=== PATIENT | male | born 1975 | race Caucasian/White ===

== ENCOUNTER 2023-03-09 07:41 | Emergency (ER) | payer BC, SELFPAY ==
[2023-03-09 07:46] VITALS: BP 189/102; PULSE 88; RESP 18; TEMP 36.3; O2SAT 100; BMI 33.6
--- NOTE | 2023-03-09 08:20 | CRLHL7_ITS ---
For Patients: As a result of the Century Cures Act, medical imaging exams and procedure reports are released immediately into your electronic medical record. You may view this report before your referring provider. If you have questions, please contact your health care provider. INDICATION: Chest pain COMPARISON: None TECHNIQUE: PA and lateral views of the chest were acquired FINDINGS: TUBES AND LINES: None. HEART AND MEDIASTINUM: The heart size is normal. The mediastinal contour appears normal for patient age. LUNGS AND PLEURAL SPACES: The lungs appear normal.The pleural spaces are unremarkable. OSSEOUS STRUCTURES: Age-appropriate appearance. No acute focal finding. IMPRESSION: No evidence of active pulmonary disease. Dictated by Rah Saenz MD @ 03/09/2023 9:00:43 AM (Electronically Signed)
[2023-03-09] MEDS: 0.9 % SODIUM CHLORIDE 1000 ml 1,000 ML IV (08:38)
--- NOTE | 2023-03-09 08:40 | ED_ITS ---
HPI - Chest Pain General Time Seen by Provider: 08:00 <Florence Lara Filed: 03/09/23 10:59> Date Seen: 03/09/23 <Florence Lara Filed: 03/09/23 10:59> Chief Complaint: Chest Pain <Florence Lara Filed: 03/09/23 10:59> Stated Complaint: chest pain,shortness of breath,headache <Florence Lara Filed: 03/09/23 10:59> Time Seen by Provider: 03/09/23 08:04 <Florence Lara Filed: 03/09/23 10:59> Source: patient <Florence Lara Filed: 03/09/23 10:59> Mode of arrival: ambulatory <Florence Lara Filed: 03/09/23 10:59> Limitations: no limitations <Florence Lara Filed: 03/09/23 10:59> History of Present Illness HPI narrative: Patient presents with constant left-sided chest pain beginning this morning at 0300. Patient describes his chest pain as heavy, and notes it radiates to his left shoulder and left jaw. Patient took two BC powder packets (65 mg aspirin) at 0600 with little to no relief. Chest pain does not alleviate with position changes. The pain is not aggravated by position changes, deep breaths, or palpitation. Patient notes associated nausea, headache, and ligh theadedness. Denies any fevers, chills, unexpected weight changes, urinary changes, cough, shortness of breath, palpitations, lower extremity swelling, abdominal pain, emesis, or any other complaints at this time. Denies any recent ill contacts. No recent travel. Patient chewed tobacco x 30 years, recently quit, now does nicotine packets. Drinks 3-4 glasses of bourbon every other day or so. Of note, patient has a hiatal hernia and a history of reflux. States he has had similar symptoms in the past, but never this severe. <Florence Lara Filed: 03/09/23 10:59> Related Data Home Medications: Home Medications Medication Instructions Recorded Confirmed cholestyramine (with sugar) 4 gram ea PO 3XD 03/09/23 oral powder losartan 25 mg tablet 25 mg PO QPM 03/09/23 03/09/23 <Florence [employer] Last Filed: 03/09/23 10:59> Allergies/Adverse Reactions: Allergies Allergy/AdvReac Type Severity Reaction Status Date / Time erythromycin base Allergy Verified 03/09/23 07:49 <[facility] Filed: 03/09/23 10:59> Review of Systems Const Denies: fever, chills, change in weight, fatigue or night sweats <Florence [employer] Filed: 03/09/23 10:59> Eyes Denies: change in vision or blurry vision <[facility] Filed: 03/09/23 10:59> ENMT Denies: throat pain, neck pain or difficulty swallowing <Florence [employer] Filed: 03/09/23 10:59> Cardio Reports: chest pain (radiating to L shoulder and L jaw) and lightheadedness; Denies: palpitations, edema, swelling of feet/ankles, shortness of breath with exertion, shortness of breath when lying down or leg pain with exertion <Florence [employer] Filed: 03/09/23 10:59> Resp Denies: shortness of breath, cough, wheezing, stridor, pain on inspiration, coughing up blood or chest congestion <Florence Mingyian Filed: 03/09/23 10:59> GI Reports: nausea and heartburn; Denies: abdominal pain, vomiting, diarrhea, constipation, bloating, difficulty swallowing, change in bowel habits or painful bowel movements <Florence [employer] Filed: 03/09/23 10:59> Denies: painful urination, urinary frequency, urinary urgency, blood in urine or decreased urine ouput <Florence [employer] Filed: 03/09/23 10:59> Musculo Denies: neck pain, extremity pain or extremity swelling <Florence Mingyian Filed: 03/09/23 10:59> Integ/Breast Denies: rash <Florence Mingyian Filed: 03/09/23 10:59> Neuro Reports: headache; Denies: numbness in extremities, weakness in extremities, lack of coordination, dizziness or slurred speech <Florence Mingyian Filed: 03/09/23 10:59> Psych Denies: anxiety <Florence Frausto - Last Filed: 03/09/23 10:59> Endo Denies: fatigue <Florence Jett - Last Filed: 03/09/23 10:59> Allergy/Immuno Denies: wheezing <Florence Jett - Last Filed: 03/09/23 10:59> PFSH PFS Social History: Social History Do you use any of these nicotine containing products: Smokeless Tobacco <Florence Frausto - Last Filed: 03/09/23 10:59> Exam Const Vital Signs, click to edit/add: Vital Signs - 24 hr 03/09/23 07:46 03/09/23 09:00 03/09/23 09:10 Temperature 97.3 F L Pulse Rate 66 Pulse Rate [Right Pulse Oximeter] 88 Respiratory Rate 18 Blood Pressure 133/102 H Blood Pressure [Right Upper Arm] 189/102 H Pulse Oximetry 100 97 97 Oxygen Delivery Method Room Air 03/09/23 09:11 03/09/23 09:15 03/09/23 09:30 Temperature Pulse Rate 64 65 67 Pulse Rate [Right Pulse Oximeter] Respiratory Rate Blood Pressure Blood Pressure [Right Upper Arm] Pulse Oximetry 96 96 96 Oxygen Delivery Method <Florence Frausto - Last Filed: 03/09/23 10:59> Vital Signs - 24 hr 03/09/23 07:46 03/09/23 09:00 03/09/23 09:10 Temperature 97.3 F L Pulse Rate 66 Pulse Rate [Right Pulse Oximeter] 88 Respiratory Rate 18 Blood Pressure 133/102 H Blood Pressure [Right Upper Arm] 189/102 H Pulse Oximetry 100 97 97 Oxygen Delivery Method Room Air 03/09/23 09:11 03/09/23 09:15 03/09/23 09:30 Temperature Pulse Rate 64 65 67 Pulse Rate [Right Pulse Oximeter] Respiratory Rate Blood Pressure Blood Pressure [Right Upper Arm] Pulse Oximetry 96 96 96 Oxygen Delivery Method <Sage Serna MD - Last Filed: 03/09/23 16:32> Documenting provider has reviewed patient's vital signs: yes <Florence Frausto - Last Filed: 03/09/23 10:59> Common normals: no apparent distress, average body habitus, oriented x3, no limitations, healthy appearing, alert and well nourished <Florence Gall - Last Filed: 03/09/23 10:59> HENMT Common normals: normocephalic, head/scalp atraumatic, hearing grossly normal bilaterally, external ears normal, external nose normal, nasal mucous membranes and turbinates normal, moist oral mucous membranes, oropharynx normal, dentition normal and gingiva normal <Florence Filed: 03/09/23 10:59> Head and scalp: normocephalic and atraumatic <Florence Filed: 03/09/23 10:59> Nose: external nose normal and nasal mucous membranes and turbinates normal <Florence Filed: 03/09/23 10:59> External ear: external ears normal <Florence Filed: 03/09/23 10:59> Eye Common normals: PERRL, EOMs intact bilaterally, conjunctivae normal and no scleral icterus <Florence Filed: 03/09/23 10:59> General eye: normal appearance of both eyes <Florence Filed: 03/09/23 10:59> Conjunctiva: conjunctiva(e) normal <Florence Filed: 03/09/23 10:59> Pupil: PERRL <Florence Filed: 03/09/23 10:59> Neck & C-Spine Common normals: full ROM, no lymphadenopathy, supple, thyroid normal and no carotid bruits <Florence Filed: 03/09/23 10:59> Thyroid: thyroid normal <Florence Filed: 03/09/23 10:59> Lymph Lymphatic: no lymphadenopathy noted <Florence Filed: 03/09/23 10:59> Chest Common normals: inspection of chest normal, palpation of chest normal, inspection of breasts normal and palpation of breasts normal <Florence Filed: 03/09/23 10:59> Resp Common normals: normal respiratory effort, no retractions, no use of accessory muscles, clear to auscultation bilaterally and percussion normal <Florence Filed: 03/09/23 10:59> Auscultation: clear to auscultation bilaterally <Florence Gall - Last Filed: 03/09/23 10:59> Percussion: percussion normal <Florence Filed: 03/09/23 10:59> Cardio Common normals: regular rate, regular rhythm, S1 normal heart sound, S2 normal heart sound, no gallops, no clicks, no murmurs, no rub and peripheral pulses 2+ throughout <Florence Filed: 03/09/23 10:59> Rate: regular rate <Florence Filed: 03/09/23 10:59> Rhythm: regular rhythm <Florence Filed: 03/09/23 10:59> Heart sounds: S1 normal and S2 normal <Florence Filed: 03/09/23 10:59> Peripheral pulses: pulses 2+ throughout <Florence Filed: 03/09/23 10:59> GI Common normals: Normal to inspection, nondistended, normoactive bowel sounds present, soft to palpation, non-tender and no hepatosplenomegaly <Florence Filed: 03/09/23 10:59> Palpation: soft and no hepatosplenomegaly <Florence Filed: 03/09/23 10:59> Common normals: external exam normal <Florence Filed: 03/09/23 10:59> Extremity Common normals: normal to inspection, full ROM, normal capillary refill, no clubbing, cyanosis or edema, no calf tenderness and no pedal edema <Florence Filed: 03/09/23 10:59> Neuro Common normals: oriented x3 <Florence Filed: 03/09/23 10:59> Sensorium/orientation: alert <Florence - Filed: 03/09/23 10:59> Skin Common normals: no rashes or lesions noted <Florence Filed: 03/09/23 10:59> General skin exam: no rashes or lesions noted <Florence Filed: 03/09/23 10:59> Course Course ED Course: patient is pain free, discussed with him that heart score is low, and 2 troponins and ekg normal. Patient agreeable to go home and follow up with primary care, suggest alcohol cessation, blood pressure follow up and proton pump inhibitor. Went over warning signs, and follow up if ongoing issues. I was part of the hx and px, follow up and treatment of this gentleman. I reviewed all the labs <Sage Serna MD - Last Filed: 03/09/23 16:32> Reevaluation(s) Time of Reevaluation #1: 08:20 <Florence Frausto - Last Filed: 03/09/23 10:59> Reevaluation #1: Patient seen and evaluated by Dr. Serna. Updated patient on plan for his stay here. <Florence Frausto - Last Filed: 03/09/23 10:59> Time of Reevaluation #2: 10:00 <Florence Frausto - Last Filed: 03/09/23 10:59> Reevaluation #2: Dr. Serna updated patient on lab results. Chest pain is improving. <Florence Frausto - Last Filed: 03/09/23 10:59> Vital Signs Vital signs: Initial Vital Signs Temperature 97.3 F L 03/09/23 07:46 Temperature Source Temporal Artery Scan 03/09/23 07:46 Pulse Rate 88 03/09/23 07:46 Respiratory Rate 18 03/09/23 07:46 Blood Pressure 189/102 H 03/09/23 07:46 Blood Pressure Mean 131 H 03/09/23 07:46 Blood Pressure Position Sitting 03/09/23 07:46 Pulse Oximetry 100 03/09/23 07:46 Oxygen Delivery Method Room Air 03/09/23 07:46 Vital Signs Temperature 97.3 F L 03/09/23 07:46 Pulse Rate 88 03/09/23 07:46 Respiratory Rate 18 03/09/23 07:46 Blood Pressure 189/102 H 03/09/23 07:46 Pulse Oximetry 100 03/09/23 07:46 Oxygen Delivery Method Room Air 03/09/23 07:46 Temperature 97.3 F L 03/09/23 07:46 Pulse Rate 67 03/09/23 09:30 Respiratory Rate 18 03/09/23 07:46 Blood Pressure 133/102 H 03/09/23 09:10 Pulse Oximetry 96 03/09/23 09:30 Oxygen Delivery Method Room Air 03/09/23 07:46 <Florence Frausto - Last Filed: 03/09/23 10:59> Initial Vital Signs Temperature 97.3 F L 03/09/23 07:46 Temperature Source Temporal Artery Scan 03/09/23 07:46 Pulse Rate 88 03/09/23 07:46 Respiratory Rate 18 03/09/23 07:46 Blood Pressure 189/102 H 03/09/23 07:46 Blood Pressure Mean 131 H 03/09/23 07:46 Blood Pressure Position Sitting 03/09/23 07:46 Pulse Oximetry 100 03/09/23 07:46 Oxygen Delivery Method Room Air 03/09/23 07:46 Vital Signs Temperature 97.3 F L 03/09/23 07:46 Pulse Rate 88 03/09/23 07:46 Respiratory Rate 18 03/09/23 07:46 Blood Pressure 189/102 H 03/09/23 07:46 Pulse Oximetry 100 03/09/23 07:46 Oxygen Delivery Method Room Air 03/09/23 07:46 Temperature 97.3 F L 03/09/23 07:46 Pulse Rate 67 03/09/23 09:30 Respiratory Rate 18 03/09/23 07:46 Blood Pressure 133/102 H 03/09/23 09:10 Pulse Oximetry 96 03/09/23 09:30 Oxygen Delivery Method Room Air 03/09/23 07:46 <Sage Serna MD - Last Filed: 03/09/23 16:32> Medications Administered Medications: Discontinued Medications Generic Name Dose Route Start Last Admin Trade Name Freq PRN Reason Stop Dose Admin Aspirin 324 mg 03/09/23 08:17 03/09/23 08:38 Aspirin 81 Mg Tab.Chew PO 03/09/23 08:18 Not Given ONCE ONE Sodium Chloride 1,000 mls @ 1,000 mls/hr 03/09/23 08:30 03/09/23 08:38 0.9 % Sodium Chloride 1000 Ml IV 03/09/23 09:29 1,000 mls/hr .Q1H VIRA Administration Pantoprazole Sodium 40 mg 03/09/23 08:38 03/09/23 09:10 Pantoprazole Sodium 40 Mg Inj IVP 03/09/23 08:39 40 mg ONCE ONE Administration <Florence Frausto - Last Filed: 03/09/23 10:59> Discontinued Medications Generic Name Dose Route Start Last Admin Trade Name Sudha PRN Reason Stop Dose Admin Aspirin 324 mg 03/09/23 08:17 03/09/23 08:38 Aspirin 81 Mg Tab.Chew PO 03/09/23 08:18 Not Given ONCE ONE Sodium Chloride 1,000 mls @ 1,000 mls/hr 03/09/23 08:30 03/09/23 08:38 0.9 % Sodium Chloride 1000 Ml IV 03/09/23 09:29 1,000 mls/hr .Q1H VIRA Administration Pantoprazole Sodium 40 mg 03/09/23 08:38 03/09/23 09:10 Pantoprazole Sodium 40 Mg Inj IVP 03/09/23 08:39 40 mg ONCE ONE Administration <Sage Serna MD - Last Filed: 03/09/23 16:32> MDM - Chest Pain MDM Narrative Medical decision making narrative: Patient is a 47-year-old male with a pertinent medical history of hypertension and hiatal hernia who presents with constant, ongoing, left-sided chest pain radiating to his left shoulder and left jaw beginning this morning at 0300 with associated nausea, headaches, and lightheadedness. Patient took two (65mg aspirin + caffeine) BC power packets with little to no relief at 0600. On exam, patient is afebrile, A&Ox3, and in no acute distress. He is able to answer questions appropriately. Upon arrival, patient is hypertensive at 189/102, vital signs are otherwise stable. Physical exam was unremarkable with regular rate and rhythm and lungs clear to auscultation. No abdominal tenderness. Plan is to order Chest Xray, Covid/Flu to rule out infectious causes, including pneumonia. Will obtain D-dimer to assess risk for DVT. Ordered Troponin, EKG, CBC, BMP, Mg, and PTT to assess clotting factors, electrolyte abnormalities, anemia, and cardiac causes including STEMI. Patients heart score for major cardiac events was determined to be low at 3 with MD Calc. Patient given 1 L normal saline during his stay here in the ED. EKG shows normal sinus rhythm with no other abnormalities. Troponin negative, will repeat. Repeat EKG shows normal sinus rhythm and repeat Troponin negative. Chest X-ray unremarkable, no sign of pulmonary disease. Covid/Flu negative therefore low suspicion for viral infection. Liver panel shows mildly elevated AST, likely due to the patients alcohol con sumption. Discussed the importance of cutting back with the patient. BMP shows glucose mildly elevated, otherwise WNL. Vital signs stable, repeat blood pressure at 133/102. Based on the above findings, it is likely the patients chest pain was a combination of reflux from his history of a hiatal hernia and alcohol consumption, as EKG, Troponin, and labs were all unremarkable for other cardiac events. We discussed the importance of alcohol and tobacco cessation or decreasing his intake. Recommended 20 mg Prilosec to help subside his residual heartburn. Advised patient to return if pain increases or he develops any other worrisome symptoms. Recommended follow-up with his primary care. Patient understands and is in agreement with the plan. All questions answered. <José Miguel Frausto - Last Filed: 03/09/23 10:59> Differential Diagnosis Differential diagnosis: Likely stable angina, unstable angina pectoris, atypical chest pain, st elevation myocardial infarction and chest pain <Florence Frausto - Last Filed: 03/09/23 10:59> Medical Records Data Attestation: I reviewed the patient's medical records. <Florence Frausto - Last Filed: 03/09/23 10:59> Lab Data Attestation: I reviewed the patient's lab results. <Florence Frausto - Last Filed: 03/09/23 10:59> Labs: Lab Results 03/09/23 03/09/23 03/09/23 Range/Units 08:18 08:30 10:04 WBC 4.73 (4.50-11.00) K/uL RBC 4.68 (4.30-5.90) m/uL Hgb 14.9 (13.5-17.5) gm/dL Hct 43.3 (37.0-53.0) % MCV 93 (80-100) fL MCH 32 (26-34) pg MCHC 34 (32-36) gm/dL RDW Coeff of Nelsy 12.0 (11.5-15.5) % Plt Count 165 (140-440) K/uL Neut % (Auto) 66.3 (42.0-72.0) % Lymph % (Auto) 26.2 (20-44) % [place] % (Auto) 6.1 (0.0-11.0) % Eos % (Auto) 0.8 (0.0-7.0) % Baso % (Auto) 0.4 (0.0-3.0) % Neut # (Auto) 3.13 (1.7-7.0) K/uL Lymph # (Auto) 1.24 (0.90-2.90) K/uL [place] # (Auto) 0.30 (0.00-0.90) K/UL Eos # (Auto) 0.04 (0.00-0.50) K/uL Baso # (Auto) 0.02 (0.00-0.30) K/uL Abs Immat Gran (auto) 0.01 (0.00-0.30) K/uL Imm/Tot Granulo (auto) 0.2 % Diff Slide Review Acceptable Review (Acceptable) APTT 24 (23-33) Seconds D-Dimer Quant (PE/DVT) 0.50 (0.00-0.50) ug/ml Sodium 140 (135-149) mmol/L Potassium 4.2 (3.6-5.1) mmol/L Chloride 105 (96-114) mmol/L Carbon Dioxide 25 (20-32) mmol/L Anion Gap 10 (7-15) mEq/L BUN 15 (5-24) mg/dL Creatinine 1.0 (0.5-1.5) mg/dL Estimated Creat Clear 102.09 Estimated GFR 93 ml/min Glucose 129 H (60-115) mg/dL Calcium 9.5 (8.4-10.6) mg/dL Magnesium 2.0 (1.5-2.6) mg/dL Total Bilirubin 0.6 (0.1-1.5) mg/dL Direct Bilirubin 0.0 (0.0-0.5) mg/dL AST 56 H (12-35) U/L ALT 51 H (4-50) U/L Alkaline Phosphatase 54 (40-150) U/L NT-Pro-B Natriuret Pep 21 pg/mL Total Protein 7.4 (6.0-8.3) g/dL Albumin 4.6 (3.3-5.0) g/dL TSH 3.340 (0.270-4.20) uIU/mL Ethyl Alcohol < 0.01 L (0.01-0.03) % SARS-CoV-2 (PCR) Negative SARS-CoV-2 (Negative) Influenza Type A (PCR) Negative PCR FLU A (Negative) Influenza Type B (PCR) Negative PCR FLU B (Negative) RSV (PCR) Negative PCR RSV (Negative) POC Troponin I 0.02 0.00 L (0.01-0.04) ng/ml <Florence Frausto - Last Filed: 03/09/23 10:59> Lab Results 03/09/23 03/09/23 03/09/23 Range/Units 08:18 08:30 10:04 WBC 4.73 (4.50-11.00) K/uL RBC 4.68 (4.30-5.90) m/uL Hgb 14.9 (13.5-17.5) gm/dL Hct 43.3 (37.0-53.0) % MCV 93 (80-100) fL MCH 32 (26-34) pg MCHC 34 (32-36) gm/dL RDW Coeff of Nelsy 12.0 (11.5-15.5) % Plt Count 165 (140-440) K/uL Neut % (Auto) 66.3 (42.0-72.0) % Lymph % (Auto) 26.2 (20-44) % Carl[place] % (Auto) 6.1 (0.0-11.0) % Eos % (Auto) 0.8 (0.0-7.0) % Baso % (Auto) 0.4 (0.0-3.0) % Neut # (Auto) 3.13 (1.7-7.0) K/uL Lymph # (Auto) 1.24 (0.90-2.90) K/uL [place] # (Auto) 0.30 (0.00-0.90) K/UL Eos # (Auto) 0.04 (0.00-0.50) K/uL Baso # (Auto) 0.02 (0.00-0.30) K/uL Abs Immat Gran (auto) 0.01 (0.00-0.30) K/uL Imm/Tot Granulo (auto) 0.2 % Diff Slide Review Acceptable Review (Acceptable) APTT 24 (23-33) Seconds D-Dimer Quant (PE/DVT) 0.50 (0.00-0.50) ug/ml Sodium 140 (135-149) mmol/L Potassium 4.2 (3.6-5.1) mmol/L Chloride 105 (96-114) mmol/L Carbon Dioxide 25 (20-32) mmol/L Anion Gap 10 (7-15) mEq/L BUN 15 (5-24) mg/dL Creatinine 1.0 (0.5-1.5) mg/dL Estimated Creat Clear 102.09 Estimated GFR 93 ml/min Glucose 129 H (60-115) mg/dL Calcium 9.5 (8.4-10.6) mg/dL Magnesium 2.0 (1.5-2.6) mg/dL Total Bilirubin 0.6 (0.1-1.5) mg/dL Direct Bilirubin 0.0 (0.0-0.5) mg/dL AST 56 H (12-35) U/L ALT 51 H (4-50) U/L Alkaline Phosphatase 54 (40-150) U/L NT-Pro-B Natriuret Pep 21 pg/mL Total Protein 7.4 (6.0-8.3) g/dL Albumin 4.6 (3.3-5.0) g/dL TSH 3.340 (0.270-4.20) uIU/mL Ethyl Alcohol < 0.01 L (0.01-0.03) % SARS-CoV-2 (PCR) Negative SARS-CoV-2 (Negative) Influenza Type A (PCR) Negative PCR FLU A (Negative) Influenza Type B (PCR) Negative PCR FLU B (Negative) RSV (PCR) Negative PCR RSV (Negative) POC Troponin I 0.02 0.00 L (0.01-0.04) ng/ml <Sage Serna MD - Last Filed: 03/09/23 16:32> Imaging Data Chest x-ray: Attestation: I have reviewed the pertinent imaging results. <Sage Seran MD - Last Filed: 03/09/23 16:32> My impression: chest xray is normal <Sage Serna MD - Last Filed: 03/09/23 16:32> ECG Data Attestation: I personally reviewed and interpreted this ECG as follows: <Florence Frausto - Last Filed: 03/09/23 10:59> ECG interpretation date: 03/09/23 <Florence Frausto - Last Filed: 03/09/23 10:59> ECG interpretation time: 08:10 <Florence Frausto Filed: 03/09/23 10:59> Interpretation: Normal sinus rhythm 74 bpm No axis deviation <Florence Frausto Filed: 03/09/23 10:59> Normal sinus rhythm 74 bpm No axis deviation , no acute changes. <Sage Serna MD - Last Filed: 03/09/23 16:32> Discharge Plan Discharge Clinical Impression: Elevated blood pressure reading without diagnosis of hypertension, Chest pain <Florence Frausto - Last Filed: 03/09/23 10:59> Patient Disposition: Home, Self-Care <Florence Frausto Filed: 03/09/23 10:59> Condition: Stable <Florence Frausto Filed: 03/09/23 10:59> Instructions: Chest Pain (DC) <Florence Frausto - Filed: 03/09/23 10:59> Additional Instructions: Home, rest, follow-up in clinic, I have given you the name of an excellent primary care physician can make an appointment with. Your blood pressure came down but is in the range all follow-up, and possible increase treatment. Would also suggest cessation or slowing down alcohol intake, as your liver transaminases were elevated. The chest pain, showed no evidence of elevation of your heart enzymes, and your EKG was normal I would suggest follow-up and consideration of a stress test as an outpatient, taking 81 mg of aspirin till follow-up with primary care Prilosec 20 mg a day, is an excellent treatment for reflux, and there may be a component also to her chest pain. I bought at [employer] or [employer]. It is [id number]. <Florence Frausto - Last Filed: 03/09/23 10:59> Prescriptions: No Action losartan 25 mg tablet 25 mg PO QPM cholestyramine (with sugar) 4 gram powder PO 3XD <Florence Gilbetr Filed: 03/09/23 10:59> Follow Up/Referrals: Aditya Marcelo MD [Staff Physician] - Provider,Not a Local [Primary Care Provider] - <Florence Jett Gilbert Filed: 03/09/23 10:59> Stand Alone Forms: MyHealth Info Instructions <Florence Frausto - Last Filed: 03/09/23 10:59>
[2023-03-09 08:47] LABS: Basophils Absolute Auto 0.02 K/uL (0.00-0.30); Basophils Percent Auto 0.4 % (0.0-3.0); Eosinophils Absolute Auto 0.04 K/uL (0.00-0.50); Eosinophils Percent Auto 0.8 % (0.0-7.0); Hematocrit 43.3 % (37.0-53.0); Hemoglobin* 14.9 gm/dL (13.5-17.5); Immature Granulocytes Abs Auto 0.01 K/uL (0.00-0.30); Immature Granulocytes Pct Auto 0.2 %; Lymphocytes Absolute Auto 1.24 K/uL (0.90-2.90); Lymphocytes Percent Auto 26.2 % (20-44); Mean Corpuscular HGB Conc 34 gm/dL (32-36); Mean Corpuscular Hemoglobin 32 pg (26-34); Mean Corpuscular Volume 93 fL (80-100); Monocytes Percent Auto 6.1 % (0.0-11.0); Neutrophils Absolute Auto 3.13 K/uL (1.7-7.0); Neutrophils Percent Auto 66.3 % (42.0-72.0); Platelet Count* 165 K/uL (140-440); Red Blood Count 4.68 m/uL (4.30-5.90); White Blood Count* 4.73 K/uL (4.50-11.00)
[2023-03-09 08:50] LABS: Troponin, Point-of-Care* 0.02 ng/ml (0.01-0.04)
[2023-03-09 09:00] VITALS: O2SAT 97
[2023-03-09 09:09] LABS: Chloride* 105 mmol/L (96-114); Potassium* 4.2 mmol/L (3.6-5.1); Sodium* 140 mmol/L (135-149)
[2023-03-09 09:10] VITALS: BP 133/102; PULSE 66; O2SAT 97
[2023-03-09 09:10] LABS: Albumin* 4.6 g/dL (3.3-5.0)
[2023-03-09] MEDS: PANTOPRAZOLE SODIUM 40 MG INJ IVP (09:10)
[2023-03-09 09:11] VITALS: PULSE 64; O2SAT 96
[2023-03-09 09:12] LABS: Anion Gap 10 mEq/L (7-15); Blood Urea Nitrogen* 15 mg/dL (5-24); Carbon Dioxide* 25 mmol/L (20-32); Est. Creatinine Clearance* 102.09; Estimated Glomerular Filt Rate 93 ml/min; Glucose* 129 mg/dL (60-115)
[2023-03-09 09:13] LABS: Alkaline Phosphatase* 54 U/L (40-150); Aspartate Amino Transferase* 56 U/L (12-35); Bilirubin Total* 0.6 mg/dL (0.1-1.5); Calcium* 9.5 mg/dL (8.4-10.6); Total Protein* 7.4 g/dL (6.0-8.3)
[2023-03-09 09:14] LABS: Alanine Aminotransferase* 51 U/L (4-50)
[2023-03-09 09:15] VITALS: PULSE 65; O2SAT 96
[2023-03-09 09:21] LABS: Slide Review Reflex Yes
[2023-03-09 09:22] LABS: Slide Review Acceptable Review (Acceptable)
[2023-03-09 09:23] LABS: Ethanol* < 0.01 % (0.01-0.03); NT Pro B Type NatriureticPept* 21 pg/mL
[2023-03-09 09:24] LABS: PCR FLU A Negative PCR FLU A (Negative); PCR FLU B Negative PCR FLU B (Negative); PCR RSV Negative PCR RSV (Negative)
[2023-03-09 09:30] VITALS: PULSE 67; O2SAT 96
[2023-03-09 09:38] LABS: SARS PCR* Negative SARS-CoV-2 (Negative)
[2023-03-09 10:03] LABS: Partial Thromboplastin Time* 24 Seconds (23-33)
== END 2023-03-09 10:59 | disposition home or self-care (01) ==
PROVIDERS: Emergency Provider Family Medicine
DX: R07.9 Chest pain, unspecified (principal); R03.0 Elevated blood-pressure reading, without diagnosis of hypertension
CPT/HCPCS: 36415; 71046; 80048; 80076; 82077; 83735; 83880; 84443; 84484; 85025; 85379; 85730; 87631; 93005; 94761; 96374; 99284; 99285; C9113; J7030